=== PATIENT | female | born 1995 | race Caucasian/White ===

== ENCOUNTER 2019-04-11 01:28 | Outpatient (CLI) | payer MEDICAID ==
[2019-04-11 01:41] VITALS: BP 120/61
--- NOTE | 2019-04-11 02:55 | Ultrasound Report ---
ULTRASOUND BIOPHYSICAL PROFILE INDICATION: decreased movement BPP. COMPARISON: None available. FINDINGS: breathing movement = 2 Gross body movement = 2 tone = 2 Qualitative amniotic fluid volume = 2 Total biophysical score = /8 Presentation is Cephalic. heart rate is 152 beats per minute. IMPRESSION: biophysical profile = 10/29 Signer Name: Hans Coleman MD Signed: 04/11/2019 2:51 AM Workstation Name: [email or web address]
== END 2019-04-11 02:54 | disposition home or self-care (01) ==
LOC: TRG 01:28
PROVIDERS: ATTEND Obstetrics & Gynecology
DX: O36.8120 Decreased fetal movements, second trimester, not applicable or unspecified (principal); Z3A.29 29 weeks gestation of pregnancy
CPT/HCPCS: 59025; 76819

== ENCOUNTER 2019-05-23 20:28 | Outpatient (CLI) | payer MEDICAID ==
[2019-05-23] MEDS ORDERED: LACTATED RINGERS 500 ML IV ONE (21:19)
[2019-05-23] MEDS ORDERED: LACTATED RINGERS 1,000 ML ONE (21:22)
[2019-05-23] MEDS ORDERED: ONDANSETRON 4 MG/2 ML INJ IM ONE (21:33)
[2019-05-23] MEDS ORDERED: ACETAMINOPHEN 325 MG TAB PO ONE (21:34)
[2019-05-23] MEDS ORDERED: ONDANSETRON 4 MG/2 ML INJ IV ONE (21:55)
[2019-05-23 23:26] VITALS: BP 115/56
[2019-05-23 23:53] LABS: Bilirubin,Urine NEG (Negative); Blood,Urine NEG (Negative); Color,Urine Yellow (Yellow); Mucus,Urine FEW /HPF; Protein,Urine <15 mg/dL mg/dL (Negative)
== END 2019-05-24 00:45 | disposition home or self-care (01) ==
LOC: TRG 20:28
PROVIDERS: ATTEND Obstetrics & Gynecology
DX: O21.2 Late vomiting of pregnancy (principal); O26.893 Other specified pregnancy related conditions, third trimester; R10.9 Unspecified abdominal pain; M54.5 Low back pain; R50.9 Fever, unspecified; O47.03 False labor before 37 completed weeks of gestation, third trimester; Z3A.35 35 weeks gestation of pregnancy
CPT/HCPCS: 81001; 87400; 96361; 96374; J2405; J7120